=== PATIENT | female | born 1995 | race Caucasian/White ===

== ENCOUNTER 2016-09-29 18:05 | Inpatient (IN) | payer OTHER ==
[~2016-09-29] VITALS: Ht 180.3 cm; Wt 111.8 kg
[~2016-09-29 18:05] MED LIST: BIRTH CONTROL PILL PO; MOTRIN800 MG PO; Motrin,Rufen800 MG PO; NORCO 325 MG-51 TAB PO; ULTRAM50 MG PO
[2016-09-29 18:14] VITALS: BP 150/88
[2016-09-29] MEDS ORDERED: BACTRIM 400 MG-1 TAB PO (18:17)
[2016-09-29 18:35] LABS: BILIRUBIN NEGATIVE (NEGATIVE); BLOOD 2+ (NEGATIVE); CLARITY CLEAR (CLEAR); COLOR YELLOW (YELLOW); GLUCOSE NEGATIVE (NEGATIVE); KETONE NEGATIVE (NEGATIVE); LEUKO ESTERASE NEGATIVE (NEGATIVE); NITRITE NEGATIVE (NEGATIVE); PROTEIN NEGATIVE (NEGATIVE); UROBILINOGEN 0.2 E.U./dl (0.2-1.0)
[2016-09-29 18:47] LABS: BASO % 0.1 % (0.0-1.0); EOS # 0.1 10*3/uL (0.0-0.4); EOS % 0.9 % (1.0-4.0); HEMATOCRIT 42.5 % (37.0-47.0); HEMOGLOBIN 14.6 g/dl (12.0-16.0); IG # 0.1 10*3/uL (0.0-0.1); LYMPH # 1.2 10*3/uL (1.3-4.4); LYMPH % 8.5 % (27.0-41.0); MEAN CELL VOLUME 87.1 fl (81.0-99.0); MEAN CORPUSCULAR HGB 29.9 pg (27.0-31.0); MEAN CORPUSCULAR HGB CONC 34.4 g/dl (33.0-37.0); MEAN PLATELET VOLUME 9.5 fl (9.6-12.3); MONO # 0.5 10*3/uL (0.1-1.0); MONO % 3.4 % (3.0-9.0); NEUT # 12.4 10*3/uL (2.3-7.9); NEUT % 86.4 % (47.0-73.0); PLATELET COUNT AUTOMATED 309 10*3/uL (130-400); RED BLOOD COUNT 4.88 10*6/uL (4.10-5.10); RED CELL DISTRI WIDTH 12.2 % (0-14.5); WHITE BLOOD COUNT 14.3 10*3/uL (4.8-10.8)
[2016-09-29 18:50] LABS: EPITHELIAL CELLS 0-2; URINE REFLEX COMMENT YES (NO); WBC 0-2 wbc/hpf (0-5)
[2016-09-29 19:00] LABS: ALBUMIN 3.7 gm/dl (3.1-4.5); ALKALINE PHOSPHATASE 66 U/L (45-117); BILIRUBIN, TOTAL 0.4 mg/dl (0.2-1.0); BUN 8 mg/dl (7-24); CARBON DIOXIDE 26 mmol/L (21-32); CHLORIDE 100 mmol/L (98-107); CPK 58 U/L (26-192); EST GLOM FILT AFRICAN AMERICAN > 60 ml/min; GLUCOSE 90 mg/dL (65-99); LDH 191 U/L (84-246); POTASSIUM 4.4 mmol/L (3.5-5.1); SGOT/AST 24 IU/L (3-35); SGPT/ALT 43 U/L (12-78); SODIUM 137 mmol/L (136-145); TOTAL PROTEIN 7.8 gm/dL (6.4-8.2)
[2016-09-29 19:02] LABS: CKMB < 0.5 ng/ml (0.5-3.6); TROPONIN I < 0.015 ng/ml (<0.045)
[2016-09-29 20:01] VITALS: BP 130/88
[2016-09-29 21:15] VITALS: BP 140/77
[2016-09-29 21:38] VITALS: BP 140/77
[2016-09-29] MEDS ORDERED: MONONESSA 35 MC1 TA1 PO (22:39)
[2016-09-30] VITALS: BP 134/76
[2016-09-30 06:52] LABS: BASO % 0.2 % (0.0-1.0); EOS # 0.1 10*3/uL (0.0-0.4); EOS % 1.5 % (1.0-4.0); HEMOGLOBIN 12.7 g/dl (12.0-16.0); IG # 0.1 10*3/uL (0.0-0.1); LYMPH # 1.4 10*3/uL (1.3-4.4); LYMPH % 21.9 % (27.0-41.0); MEAN CELL VOLUME 86.9 fl (81.0-99.0); MEAN CORPUSCULAR HGB 29.8 pg (27.0-31.0); MEAN CORPUSCULAR HGB CONC 34.3 g/dl (33.0-37.0); MEAN PLATELET VOLUME 9.4 fl (9.6-12.3); MONO # 0.4 10*3/uL (0.1-1.0); MONO % 5.9 % (3.0-9.0); NEUT # 4.5 10*3/uL (2.3-7.9); NEUT % 69.7 % (47.0-73.0); PLATELET COUNT AUTOMATED 279 10*3/uL (130-400); RED BLOOD COUNT 4.26 10*6/uL (4.10-5.10); RED CELL DISTRI WIDTH 12.2 % (0-14.5); WHITE BLOOD COUNT 6.5 10*3/uL (4.8-10.8)
[2016-09-30 07:06] LABS: HEMOGLOBIN A1c 5.4 % (4.8-5.6)
[2016-09-30 07:18] LABS: BUN 6 mg/dl (7-24); CARBON DIOXIDE 26 mmol/L (21-32); CHLORIDE 107 mmol/L (98-107); CHOLESTEROL 116 mg/dL (<200); EST GLOM FILT AFRICAN AMERICAN > 60 ml/min; FREE T4 1.25 ng/dl (0.76-1.46); GLUCOSE 85 mg/dL (65-99); HDL CHOLESTEROL 45 mg/dl (40-60); LDL CHOLESTEROL 43 mg/dL (9-159); MAGNESIUM 2.2 mg/dL (1.5-2.1); POTASSIUM 3.9 mmol/L (3.5-5.1); SODIUM 141 mmol/L (136-145); TRIGLYCERIDES 139 mg/dl (<150); VLDL CHOLESTEROL 28 mg/dL (6-40)
[2016-09-30 07:40] LABS: FOLIC ACID 8.59 ng/mL (>5.38); VITAMIN D, 25-HYDROXY 8.6 ng/mL (30-100)
[2016-09-30 08:00] VITALS: BP 134/75
[2016-09-30 12:00] VITALS: BP 135/78
[2016-09-30] MEDS ORDERED: ZOFRAN4 MG PO (13:21)
[2016-09-30] MEDS ORDERED: VITAMIN D50000 UNIT PO (13:21)
[2016-09-30] MEDS ORDERED: ACETAMINOPHEN500 M4 PO (13:21)
== END 2016-09-30 14:25 | disposition home or self-care (01) | DRG 872 ==
LOC: ED 18:05 → EDHOLD 20:43 → 4E 20:43
PROVIDERS: Internal Medicine; Physician Assistant
DX: A41.9 Sepsis, unspecified organism (principal); E83.41 Hypermagnesemia; N39.0 Urinary tract infection, site not specified; B34.9 Viral infection, unspecified; E66.09 Other obesity due to excess calories; R31.9 Hematuria, unspecified; R19.7 Diarrhea, unspecified; Z68.34 Body mass index [BMI] 34.0-34.9, adult; Z87.81 Personal history of (healed) traumatic fracture

== ENCOUNTER 2017-04-01 22:54 | Emergency (ER) | payer OTHER ==
[~2017-04-01] VITALS: Ht 182.8 cm; Wt 103.4 kg
[~2017-04-01 22:54] MED LIST changes: +ACETAMINOPHEN500 M4 PO; +BACTRIM 400 MG-1 TAB PO; +MONONESSA 35 MC1 TA1 PO; +VITAMIN D50000 UNIT PO; +ZOFRAN4 MG PO
[2017-04-01 23:32] LABS: BASO % 0.2 % (0.0-1.0); EOS # 0.5 10*3/uL (0.0-0.4); EOS % 3.4 % (1.0-4.0); HEMATOCRIT 34.4 % (37.0-47.0); HEMOGLOBIN 11.8 g/dl (12.0-16.0); LYMPH # 4.2 10*3/uL (1.3-4.4); LYMPH % 32.4 % (27.0-41.0); MEAN CELL VOLUME 86.4 fl (81.0-99.0); MEAN CORPUSCULAR HGB 29.6 pg (27.0-31.0); MEAN CORPUSCULAR HGB CONC 34.3 g/dl (33.0-37.0); MEAN PLATELET VOLUME 9.8 fl (9.6-12.3); MONO # 0.8 10*3/uL (0.1-1.0); MONO % 5.9 % (3.0-9.0); NEUT # 7.5 10*3/uL (2.3-7.9); NEUT % 57.7 % (47.0-73.0); PLATELET COUNT AUTOMATED 293 10*3/uL (130-400); RED BLOOD COUNT 3.98 10*6/uL (4.10-5.10); RED CELL DISTRI WIDTH 12.5 % (0-14.5); WHITE BLOOD COUNT 13.1 10*3/uL (4.8-10.8)
[2017-04-01 23:36] LABS: BILIRUBIN NEGATIVE (NEGATIVE); BLOOD 3+ (NEGATIVE); CLARITY CLEAR (CLEAR); COLOR YELLOW (YELLOW); GLUCOSE NEGATIVE (NEGATIVE); KETONE NEGATIVE (NEGATIVE); LEUKO ESTERASE TRACE (NEGATIVE); NITRITE NEGATIVE (NEGATIVE); PH 5.5 (5.0-9.0); SPECIFIC GRAVITY <= 1.005 (1.005-1.030); UROBILINOGEN 0.2 E.U./dl (0.2-1.0)
[2017-04-01 23:43] LABS: WBC 0-2 wbc/hpf (0-5)
[2017-04-01 23:47] LABS: ALBUMIN 3.2 gm/dl (3.1-4.5); ALKALINE PHOSPHATASE 56 U/L (45-117); BUN 10 mg/dl (7-24); CHLORIDE 105 mmol/L (98-107); CREATININE 0.59 mg/dL (0.55-1.02); POTASSIUM 3.7 mmol/L (3.5-5.1); SGOT/AST 15 IU/L (3-35); SGPT/ALT 36 U/L (12-78); SODIUM 138 mmol/L (136-145)
== END 2017-04-02 00:22 | disposition home or self-care (01) ==
LOC: ED 22:54
PROVIDERS: Physician Assistant
DX: O46.91 Antepartum hemorrhage, unspecified, first trimester (principal); Z79.899 Other long term (current) drug therapy

== ENCOUNTER → 2017-04-09 | Outpatient (CLI) | payer OTHER | END | disposition home or self-care (01) | LOC: LAB 11:09 | DX: O00.90 Unspecified ectopic pregnancy without intrauterine pregnancy (principal); Z3A.00 Weeks of gestation of pregnancy not specified ==

== ENCOUNTER → 2017-04-20 | Outpatient (CLI) | payer OTHER | END | disposition home or self-care (01) | LOC: LAB 17:32 | DX: O00.90 Unspecified ectopic pregnancy without intrauterine pregnancy (principal) ==

== ENCOUNTER → 2017-05-04 | Outpatient (CLI) | payer OTHER | END | disposition home or self-care (01) | LOC: LAB 16:51 | DX: O00.90 Unspecified ectopic pregnancy without intrauterine pregnancy (principal); Z3A.00 Weeks of gestation of pregnancy not specified ==

== ENCOUNTER 2017-12-02 16:54 | Emergency (ER) | payer OTHER ==
[~2017-12-02] VITALS: Ht 182.8 cm; Wt 108.9 kg
[2017-12-02] MEDS ORDERED: AUGMENTIN 875875 MG PO (18:46)
== END 2017-12-02 18:49 | disposition home or self-care (01) ==
LOC: ED 16:54
DX: S61.031A Puncture wound without foreign body of right thumb without damage to nail, initial encounter (principal); Z79.899 Other long term (current) drug therapy; W26.0XXA Contact with knife, initial encounter; Y93.89 Activity, other specified; Y92.89 Other specified places as the place of occurrence of the external cause; Y99.8 Other external cause status

== ENCOUNTER 2018-03-05 20:34 | Emergency (ER) | payer OTHER ==
[~2018-03-05] VITALS: Wt 108.9 kg
[~2018-03-05 20:34] MED LIST changes: +AUGMENTIN 875875 MG PO
[2018-03-05] MEDS ORDERED: AVPAK METFORMI500 M1 PO (20:35)
[2018-03-05] MEDS ORDERED: ANAPROX DS550 MG PO (21:44)
== END 2018-03-05 22:59 | disposition home or self-care (01) ==
LOC: ED 20:34
DX: M79.671 Pain in right foot (principal); M79.674 Pain in right toe(s); Z79.84 Long term (current) use of oral hypoglycemic drugs; W22.8XXA Striking against or struck by other objects, initial encounter; Y93.89 Activity, other specified; Y92.89 Other specified places as the place of occurrence of the external cause; Y99.8 Other external cause status